=== PATIENT | male | born 1950 | race Caucasian/White ===

== ENCOUNTER 2024-11-18 13:26 | Day surgery (SDC) | payer MEDICARE, OTHER ==
[~2024-11-18 13:26] MED LIST: Iopamidol-M 300 61% 15 ML VIAL ONE
[2024-11-18 15:54] VITALS: BP 177/100; TEMP 98
== END 2024-11-18 15:36 | disposition home or self-care (01) ==
LOC: CSHRAD 13:26
PROVIDERS: ATTEND Specialist
PROC: B00BYZZ Plain Radiography of Spinal Cord using Other Contrast (ICD-10-PCS; principal; 2024-11-18)
DX: M54.16 Radiculopathy, lumbar region (principal); M48.061 Spinal stenosis, lumbar region without neurogenic claudication
CPT/HCPCS: 62284; 72132; 77003; Q9967